=== PATIENT | male | born 1945 | race Caucasian/White ===

== ENCOUNTER → 2023-11-05 10:19 | Outpatient (CLI) | payer MEDICARE, OTHER, SELFPAY ==
--- NOTE | 2023-11-05 | DI.MRI.S_ITS ---
PROCEDURE: MR FEMUR RT WO/W CON INDICATIONS: RULE OUT SOFT TISSUE MASS TECHNIQUE: Noncontrast coronal T1 spin echo and STIR, sagittal T1 spin echo with fat saturation and STIR, axial T1 spin echo and T2 fast spin echo with fat saturation. After the administration of contrast, axial/sagittal/coronal T1 spin echo with fat saturation through the right thigh. COMPARISON: None. FINDINGS: Image quality: Excellent. Bones: Patient is status post right total hip arthroplasty with susceptibility artifacts from prosthesis. No gross marrow edema. No acute fracture or dislocation. No suspicious bony lesions. No area of abnormal intraosseous enhancement is seen.. Soft tissues: Heterogeneously T2 hyperintense and T1 hypointense signal within distal right vastus lateralis muscle is seen measures up to 5.5 x 6.7 x 13.1 cm in largest transverse, AP and craniocaudal dimensions series 5, image 15 and series 8, image 25. Heterogeneous contrast enhancement in this area is also noted. No associated surrounding muscle edema. No other space occupying soft tissue mass or area of abnormal enhancement is seen. There is small to moderate amount of joint effusion and a Murray's cyst measures up to 2.8 x 1.9 cm in transverse dimension. No gross intra-articular loose bodies. IMPRESSION: 1. 5.5 x 6.7 x 13.1 cm area of heterogeneously T2 hyperintense and T1 hypointense signal within mid to distal portion of right vastus lateralis muscle and show heterogeneous contrast enhancement. The appearance is suggestive of a vascular malformation, suggest clinical correlation. 2. No other area of abnormal enhancement. No discrete drainable fluid collection. 3. Prior right total hip arthroplasty with susceptibility artifacts. No gross marrow edema. No acute fracture or dislocation. Dictated by: Bradley Ellington M.D. on 11/07/2023 at 12:42 Approved by: Bradley Ellington M.D. on 11/07/2023 at 12:53
== END ==
LOC: MRI 10:23
PROVIDERS: PCP Family Medicine; Referring Provider Orthopaedic Surgery; Visit Provider Orthopaedic Surgery
DX: Z96.641 Presence of right artificial hip joint (principal); Z09 Encounter for follow-up examination after completed treatment for conditions other than malignant neoplasm
CPT/HCPCS: 73720; A9579

== ENCOUNTER → 2024-11-02 10:24 | Outpatient (CLI) | payer MEDICARE, OTHER, SELFPAY ==
--- NOTE | 2024-11-02 10:25 | DI.MRI.S_ITS ---
PROCEDURE: MR FEMUR RT WO/W CON INDICATIONS: MASS OF RIGHT THIGH TECHNIQUE: Noncontrast coronal T1 spin echo and STIR, sagittal T1 spin echo with fat saturation and STIR, axial T1 spin echo and T2 fast spin echo with fat saturation. After the administration of contrast, axial/sagittal/coronal T1 spin echo with fat saturation through the right femur. COMPARISON: [facility], MR, MR FEMUR RT WO/W CON, 11/05/2023, 10:34. FINDINGS: Image quality: Excellent. Bones: Right hip arthroplasty, partially visualized. Marrow signal is otherwise unremarkable. No marrow edema. No acute fracture. Soft tissues: Again seen is a lesion within the distal vastus lateralis, with serpiginous T2 hyperintensity, and mild muscle fatty atrophy, likely representing a vascular malformation, grossly unchanged from prior exam. Overall, this lesion measures 6.7 x 2.3 cm on largest axial dimension, and 13.0 cm in craniocaudal dimension the. Small knee effusion. Large popliteal cyst. 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 Dictated by: Francisca Emmanuel M.D. on 11/02/2024 at 12:27 Approved by: Francisca Emmanuel M.D. on 11/02/2024 at 12:36
== END ==
PROVIDERS: PCP Family Medicine; Referring Provider Orthopaedic Surgery; Visit Provider Orthopaedic Surgery
DX: R22.41 Localized swelling, mass and lump, right lower limb (principal); M71.21 Synovial cyst of popliteal space [Baker], right knee; Z96.641 Presence of right artificial hip joint
CPT/HCPCS: 73720; A9579